=== PATIENT | female | born 1960 | race Caucasian/White ===

== ENCOUNTER 2025-07-28 11:38 | Outpatient (REF) | payer OTHER, SELFPAY ==
--- NOTE | 2025-07-28 11:29 | PAPFT_PTH ---
PATIENT: Saadia Sapp LOC: [facility] U#:[id number] AGE/SX: 64/F ROOM: RE07/28/[address]: Aziza Collier MD : [id number] BED: DIS: 07/28/2025 SPEC #: [id number] RECD: 07/28/25 13:04 STATUS: YVAN REGrazyna #: [id number] ADELE: 07/28/25 11:[address]: Aziza Collier DEPT: [facility] Cytology RECD BY: Saadia Narayan ENTERED: 07/28/25 13:05 SP TYPE: PAPFT OTHR DR: Mary Diego APRN Tissues: 1 - CX/ENDOCX FOR PAP SMEARS Procedures: PAP THIN PREP/UVM Screening HPV DNA PROBE Comments: [id number] (HPV 16 & 18/45)
== END 2025-07-28 11:39 | disposition home or self-care (01) ==
LOC: LBN 11:38
PROVIDERS: PCP Nurse Practitioner Family; Visit Provider Obstetrics & Gynecology
DX: Z12.4 Encounter for screening for malignant neoplasm of cervix (principal)
CPT/HCPCS: 88142; 87624

== ENCOUNTER 2025-08-30 11:30 | Emergency (ER) | payer OTHER, SELFPAY ==
[2025-08-30 11:33] VITALS: BP 130/78; PULSE 63; RESP 16; TEMP 36.6; O2SAT 98
--- NOTE | 2025-08-30 11:41 | ED.GENADUL_ITS ---
Discharge Plan Disposition Patient Disposition: Home Condition: Stable Discharge Details Clinical Impression: Fracture of wrist Primary Care Provider: Mary Diego ED Provider: Saadia Hernandez Home Meds and New Rx's Prescriptions: New morphine 15 mg tablet 15 mg PO BID PRNQty: 8 0RF Continued cholecalciferol (vitamin D3) 50 mcg (2,000 unit) capsule 50 mcg PO DAILY PRN estradiol 0.01 % (0.1 mg/gram) cream 1 g vaginal .twice weekly Qty: 42.5 4RF Rx Instructions: Insert 1g PV 2-3x/week. May use daily for the first 2wks. May massage a pea-sized amount around the vaginal opening prn. fluoxetine [Prozac] 20 mg capsule 20 mg PO DAILY Qty: 90 3RF Discharge Instructions Instructions: Forearm and Wrist Fractures ED, How to care for a splint Additional Instructions: Dr. Redd will follow-up with you next week, the office will likely call you on Monday to schedule an appointment Elevate your wrist above your heart when you are seated, you may wear the sling when you are out and about, make sure that you continue to range her shoulder so it does not become stiff Take Motrin 4 to 600 mg every 8 hours with food as needed for pain, I have also written for morphine, this can be addictive so use cautiously You may apply ice as needed for swelling and discomfort Please return earlier should you have worsening pain, strength or sensation changes, or should any new concerns arise Stand Alone Forms: Portal Information Referrals: Owen Redd MD [ [facility] STAFF PHYSICIAN, Orthopaedic Surgical] HPI General Date/Time Provider Initiated Documentation: 08/30/25 11:39 . HPI Narrative: This 64-year-old female is otherwise reportedly healthy presents with report of fall while cross-country skiing. Patient reportedly landed on her left wrist. She denies any additional injuries but is concerned there is a deformity. She stopped at Dr. Sheikh's house and he recommended that she come to the emergency department for assessment. She has had some tingling in her fingers since the event occurred. Related Data Home Medications ?Medication ?Instructions ?Recorded ?Confirmed fluoxetine 20 mg capsule (Prozac) 20 mg PO DAILY #90 c aps 11/21/24 08/30/25 cholecalciferol (vitamin D3) 50 50 mcg PO DAILY PRN 08/30/25 mcg (2,000 unit) capsule estradiol 0.01% (0.1 mg/gram) 1 g vaginal .twice weekl y #42.5 07/28/25 08/30/25 vaginal cream grams morphine 15 mg immediate release 15 mg PO BID PRN #8 t abs 08/30/25 tablet Previous Rx's ?Medication ?Instructions ?Recorded fluoxetine 20 mg capsule (Prozac) 20 mg PO DAILY #90 c aps 11/21/24 estradiol 0.01% (0.1 mg/gram) 1 g vaginal .twice weekl y #42.5 07/28/25 vaginal cream grams morphine 15 mg immediate release 15 mg PO BID PRN #8 t abs 08/30/25 tablet Allergies Allergy/AdvReac Type Severity Reaction Status Date / Time gluten Allergy Unknown Unknown Unverified 08/30/25 11:36 General Stated Complaint: Orthopedic ABDIFATAH: 4 Exam Narrative Exam Narrative: Alert and oriented 64-year-old female in no acute distress deformity noted to left wrist. Neurovascularly intact, no tenderness to left elbow bruising. Course Vital Signs Vital signs: Vital Signs Temperature 36.6 C 08/30/25 11:33 Pulse 63 08/30/25 11:33 Respiratory Rate 16 08/30/25 11:33 Blood Pressure 130/78 08/30/25 11:33 Pulse Oximetry 98 08/30/25 11:33 Temperature 36.6 C 08/30/25 11:33 Temperature Source Oral 08/30/25 11:33 Pulse 63 08/30/25 11:33 Respiratory Rate 16 08/30/25 11:33 Blood Pressure 130/78 08/30/25 11:33 Pulse Oximetry 98 08/30/25 11:33 Oxygen Delivery Method Room Air 08/30/25 11:33 Oxygen Flow Rate 0 08/30/25 11:33 Procedure Fracture Reduction Fracture #1: Date of Procedure: 08/30/25 Time of procedure: 14:57 Provider that performed the procedure: Saadia Rubin Time Out Performed: Yes Patient Consented: Verbally Ultrasound: Not used Side: left Fracture Reduction Location: radius Analgesia: hematoma block Technique: direct manipulation and finger traps Post Reduction X-rays Demonstrate: acceptable reduction Post-Reduction Neuro Exam: intact Post-Reduction Vascular Exam: intact Splint Applied: Yes Patient Tolerated Procedure: well Outcome: other (follow-up with orthopedics this week ) Orthopedic Splinting/Casting Date of Procedure: 08/30/25 Time of procedure: 14:59 Provider that performed the procedure: Saadia Hernandez Standard Time Out Performed: Yes Patient Consented: Verbally Side: left Upper Extremity Injury Location: wrist Upper Extremity Immobilizer: sling/shoulder immobilizer, posterior splint and volar splint Medical Decision Making Results: Patient with distal radius fracture, angulated per radiology interpretation and my review Assessment and plan: Patient tolerated procedure of reduction of dorsal angulation while in the emergency department with hematoma block with 5 cc of lidocaine. Finger traps were used and dorsal reduction was performed. I placed a dorsal volar splint on patient as opposed to a sugar-tong as there is less r otational movement as there is no obvious ulnar fracture. I think patient will be more comfortable. She is right-hand dominant which is reassuring. Case was discussed with Dr. Redd and he is comfortable with the alignment postreduction will follow-up. Patient tolerated the hematoma block, reduction, and splinting well. She is in no acute distress. I did give 5 mg of IM Valium to help with anxiolysis. I will give her a prescription for morphine at home should she need it for pain, several tabs tolerance of addiction reviewed. Dr. Redd will see patient this week for reassessment. She remains neurovascularly intact I reevaluated cap refill and sensation at time of disposition home at 1530 and placed her in a sling with risk of frozen shoulder reviewed. Discharged home in stable condition with stable vitals. Compartment syndrome signs and symptoms and other red flags reviewed. All questions answered to the best of my ability. Quality:SDOH Health Related Social Needs: Health related social needs lonely/isolated PFSH All Active Problems (Updated 08/30/25 @ 13:58 by DI Sofia) Fracture of wrist (Acute) Osteopenia (Acute) dexa scan 2021 GERD (gastroesophageal reflux disease) (Chronic) Gluten intolerance (Acute) IBS (irritable bowel syndrome) (Chronic) Depressive disorder (Chronic) Midway syndrome (Acute) Medical History (Updated 08/30/25 @ 13:58 by DI Sofia) Atrophic vaginitis Family hx of melanoma Osteoporosis DEXA 11/17/21: shows osteopenia not osteoporosis Eye irritation Surgical History Hx of colonoscopy from records, shows 06/16/2010 repeat in 10 years, Dr. Mckinnon. Hx of hernia repair Family History (Updated 11/19/24 @ 11:04 by Mary Diego APRN) Father Substance use disorder Heart disease first [place] at age 60 (3 MIs) Maternal Uncle Substance use disorder Nephew Substance use disorder Sister Substance use disorder Mother Non-Hodgkin lymphoma Depression Paternal Aunt Breast cancer Daughter No problems noted. Son Asthma Brother No problems noted. Sister No problems noted. Social History Smoking/Tobacco Use Status: Never Second Hand Exposure: No Smoking risk assessment performed?: Yes Alcohol Intake: current Alcohol Intake frequency: 0-2 drinks per day Drug use: Never Adopted: No Caregiver/Support person: No Foster care: No Household members: spouse Housing: house Number of Children: 2 number of grandchildren: 0 Communication Needs: None Education Level: master's degree Do you need help understanding health information?: Rarely current occupation: Retired Pets and animals: Yes (2 Dogs) Sexually active: Yes Do you think of yourself as: straight/heterosexual Current gender identity: female What is your relationship status?: How often do you talk on the phone with friends or family?: three or more times per week How often do you get together with friends or relatives?: three or more times per week Do you belong to any clubs or organized social groups?: no Panel score (0-1 are the most socially isolated patients): 2 What type of physical activity do you participate in: walking, bicycling, yoga and additional Details: hiking, pilates Duration: 30-45 minutes/day Frequency: 3-4 times per week Aiyana/Latter Day: Jainism Special aiyana needs: No Seatbelt use: always Helmet use: Yes Drive intox or ride w/intox trolley coach driver: No Female Reproductive History Menstrual Age of Menarche: 13 History History 3 Para 2 Hx # Term Pregnancies Multiple births Hx # Pregnancies Ectopic pregnancies AB induced Hx Number of Living Children AB spontaneous 1 Past Pregnancies Del. Date GA/Weeks # Preg Succ Route Wgt Sex Labor Lgth Anesth esia Location [facility] 05/05/95 Yes vaginal 3940.584 g Male 11/28/97 Yes vaginal 2579.807 g Female PAWSS Have you Been Recently Intoxicated or Drunk Within the Last 30 days?: No Have you Ever Experienced Previous Episodes of Alcohol Withdrawal?: No Have you ever Experienced Withdrawal Seizures?: No Have you ever Experienced Delirium Tremens(DT)s?: No Have you ever undergone Alcohol Rehabilitation Treatment (i.e, inpt ot outpatient treatment programs)?: No Have you ever Experienced Blackouts?: No Have you ever Combined Alcohol with other Downers within the last 90 days?: No Have you ever Combined Alcohol with any other Substance of Abuse during the last 90 days?: No Result: 0
--- NOTE | 2025-08-30 11:45 | DI.RAD_ITS ---
Exam(s) XR WRIST LT COMPLETE EXAM: XR WRIST LT COMPLETE CLINICAL HISTORY: left wrist pain, fall. TECHNIQUE: 2D digital imaging was performed. COMPARISON: No exams were available for comparison FINDINGS: 3 views There is a nondisplaced fracture of the distal radius. Fracture line reaches the articular surface of the radiocarpal joint but there does not appear to be an obvious step at this level. There is no significant ulnar variance. The ulnar styloid is intact. Scaphoid and lunate appear intact as does the scapholunate distance. No evidence of carpal dislocation. Incidentally noted are degenerative changes at the 1st carpometacarpal joint. IMPRESSION: Nondisplaced distal radius fracture. DATA REPOSITORY: RADIATION DOSE DELIVERED:
--- NOTE | 2025-08-30 12:17 | DI.VRAD_ITS ---
PROCEDURE INFORMATION: Exam: XR Left Wrist Exam date and time: 08/30/2025 11:53 AM Age: 64 years old Clinical indication: Injury or trauma; Fall TECHNIQUE: Imaging protocol: Radiologic exam of the left wrist. Views: 3 or more views. COMPARISON: No relevant prior studies available. FINDINGS: Bones/joints: Minimally displaced fracture of the distal radius. No dislocation. Soft tissues: Wrist swelling. IMPRESSION: Acute minimally displaced fracture of the distal radius. Dictated and Authenticated by: Freddy Salazar MD. Orderin Mary Zee MD
[2025-08-30] MEDS: Lidocaine 1% Pres-Free 5 ML VIAL (12:25)
[2025-08-30] MEDS: diazePAM 10 MG/2 ML SYR 5 MG IM (12:39)
--- NOTE | 2025-08-30 13:15 | DI.RAD_ITS ---
Exam(s) XR WRIST LT COMPLETE EXAM: XR WRIST LT COMPLETE CLINICAL HISTORY: post reduction, radius. TECHNIQUE: 2D digital imaging was performed. COMPARISON: Earlier same date. FINDINGS: 3 views perform through cast material, post closed reduction There is redemonstration of the fracture of the distal radius. There is satisfactory alignment of the distal radial fracture fragments. IMPRESSION: Satisfactory postreduction appearance DATA REPOSITORY: RADIATION DOSE DELIVERED:
--- NOTE | 2025-08-30 13:47 | DI.VRAD_ITS ---
PROCEDURE INFORMATION: Exam: XR Left Wrist Exam date and time: 08/30/2025 1:28 PM Age: 64 years old Clinical indication: Injury or trauma; Fall; Other: Post reduction TECHNIQUE: Imaging protocol: Radiologic exam of the left wrist. Views: 3 or more views. COMPARISON: CR XR WRIST LT COMPLETE 08/30/2025 11:53 AM FINDINGS: Bones/joints: Redemonstrated fracture of the distal radius. Slight fracture angulation on prior exam has decreased. No dislocation. Soft tissues: Wrist swelling. IMPRESSION: Status post reduction of distal radial fracture with decreased angulation. Dictated and Authenticated by: Freddy Salazar MD. Orderin Mary Zee MD
[2025-08-30 14:26] VITALS: BP 109/81; PULSE 59; RESP 16; O2SAT 97
== END 2025-08-30 14:01 | disposition home or self-care (01) ==
PROVIDERS: Emergency Provider Physician Assistant; PCP Nurse Practitioner Family
DX: S62.102A Fracture of unspecified carpal bone, left wrist, initial encounter for closed fracture (principal); V00.321A Fall from snow-skis, initial encounter; Z60.8 Other problems related to social environment
CPT/HCPCS: 99283 ×2; 25605; 73110; J2003; J3360

== ENCOUNTER 2025-09-04 13:39 | Outpatient (CLI) | payer OTHER, SELFPAY ==
--- NOTE | 2025-09-04 13:00 | DI.RAD_ITS ---
Exam(s) XR WRIST LT LIMITED EXAM: XR WRIST LT LIMITED INDICATION: F/U L WRIST FX. COMPARISON: CR,XR XR WRIST LT COMPLETE from 08/30/2025 CR,XR XR WRIST LT COMPLETE from 08/30/2025 TECHNIQUE: 2D digital imaging was performed. Two views. FINDINGS: A cast is in place. There has been no change in the alignment of the distal radial fracture. No new abnormalities are seen. DATA REPOSITORY: RADIATION DOSE DELIVERED:
== END 2025-09-04 13:40 | disposition home or self-care (01) ==
LOC: DIORS 13:39
PROVIDERS: PCP Nurse Practitioner Family; Visit Provider Student in an Organized Health Care Education/Training Program
DX: S62.109A Fracture of unspecified carpal bone, unspecified wrist, initial encounter for closed fracture (principal)
CPT/HCPCS: 73100

== ENCOUNTER 2025-09-08 08:08 | Day surgery (SDC) | payer OTHER, SELFPAY ==
[2025-09-08] VITALS (20 sets, daily range): BP systolic 95–120; BP diastolic 48–73; PULSE 54–67; RESP 0–23; TEMP 36.2–36.7; O2SAT 95–100; BMI 19.3
--- NOTE | 2025-09-08 07:13 | PDOC.DSDIS_ITS ---
Date of service: 09/08/25 Discharge Plan Disposition Patient Disposition: Home Condition: Stable Discharge Details Attending Provider: Jose Vance Primary Care Provider: Mary Diego Home Meds and New Rx's Prescriptions: Continued cholecalciferol (vitamin D3) 50 mcg (2,000 unit) capsule 50 mcg PO DAILY PRN estradiol 0.01 % (0.1 mg/gram) cream 1 g vaginal .twice weekly Qty: 42.5 4RF Rx Instructions: Insert 1g PV 2-3x/week. May use daily for the first 2wks. May massage a pea-sized amount around the vaginal opening prn. fluoxetine [Prozac] 20 mg capsule 20 mg PO DAILY Qty: 90 3RF morphine 15 mg tablet 15 mg PO BID PRNQty: 8 0RF Patient Comments: patient hasn't taken acetaminophen 325 mg capsule 325 mg PO Q6H PRN Discharge Instructions Additional Instructions: Surgery: Left distal radius ORIF 09/08/25 Activity: Non-weightbearing left wrist. Recommend elevation to minimize swelling discomfort. Encourage range of motion wiggle all fingers and thumb to prevent stiffness. You may use thumb and fingers gently for light activities. Prescriptions: None Use ikdz-mli-qxpyria ibuprofen 400-600mg every 4-6 hours as needed for moderate to severe pain You may use [id number]-gov-lqmgwiz Tylenol (acetaminophen) 650-1,000mg as needed for mild to moderate pain. These pain medications may be taken all at once or in different combinations as needed. Also, recommend Colace (docusate) as a stool softener as surgery and pain medicine cause constipation. Dressings: Leave splint and dressing in place until follow-up. Keep clean and dry at all times. Follow-up: 10-[address] Vance Let us know right away if you develop any redness, drainage, fevers, chest pain, or trouble breathing. Do not drink alcohol or drive for at least 24 hours after anesthesia. Please call the office during business hours with any questions or concerns. Stand Alone Forms: Anesthesia Discharge Inst., Anes.Nerve Block Instructions, Rylie Joe (DSU), Portal Information Referrals: Jose Vance MD [ [facility] STAFF PHYSICIAN, Orthopaedic Surgical] - 09/16/25 9:15 am Discharge Orders Discharge Orders: Discharge Order (Routine); Ordered 09/08/25 Ordered By: Toya Olvera DS: Diagnosis Discharge Diagnosis (1) Fracture of left distal radius: Status: Acute
--- NOTE | 2025-09-08 07:33 | ROE_ITS ---
Operative Note Operative Note PRE-OP DIAGNOSIS: Left displaced angulated intra-articular distal radius fracture POST-OP DIAGNOSIS: same PROCEDURE: Left distal radius open reduction internal fixation, intra-articular 2 fragments, CPT #31380 SURGEON: Jose Vance 3D TECHNOLOGIST: Toya Olvera ANESTHESIA TYPE: Local By Surgeon, General LMA/ETT and Primary Nerve Block Refer to Anesthesia Record ESTIMATED BLOOD LOSS: 10 COMPLICATIONS: None Patient was transported to: PACU Patient's condition: stable Implants: Synthes 2.4mm variable angle LCP distal radius system with 6x distal locking screws and 3x proximal cortex screws Indications: Please see complete medical record for details. Findings: Extra-articular displacement of intra-articular fracture readily reducible with somewhat softened bone quality Procedure Description: In the operating room, general anesthesia was induced. The patient was positioned supine on the operating room table. All bony prominences were well- padded. Preoperative antibiotics were administered. The left wrist was prepped and draped in the usual sterile fashion. The correct patient, procedure, and side of the procedure were all verified prior to incision. The modified volar [place] volar approach to the distal radius was marked, preinjected with 0.25% bupivacaine containing epinephrine, and then opened taking care to protect and mobilized the radial artery radially and using the FCR subs sheath with retraction of FCR ulnarly and then releasing and sweeping the pronator quadratus from the radial to ulnar. The distal radius fracture was identified. The intra-articular split remained nondisplaced. The extra-articular displacement was corrected with direct manual manipulation. Exposure was carried proximally distally as needed for appropriate plating. Care was taken to preserve the volar wrist capsule and soft tissue attachments. An appropriately sized volar precontoured plate was placed, secured proximally in the oblong hole, and then adjusted with fluoroscopic assistance into the best position. It was then secured proximally with bicortical 2.4 mm cortex screws and then distally with 2.4 mm locking screws. Fluoroscopy was used to confirm appropriate hardware placement, especially screws with consideration of the joint surface, and fracture alignment. The wound was copiously irrigated normal saline. Pronator quadratus reflected back over the plate radially. Hemostasis appropriate. Subcutaneous tissue closed with 3-0 Monocryl buried interrupted followed by 3-0 Monocryl running. Steri- Strips were applied over the incision followed by Xeroform and a volar plaster splint was placed on the wrist. The patient awoke from anesthesia without complication and was transferred to the recovery room in a stable condition. Date of Procedure: 09/08/25
[2025-09-08] MEDS: Lactated Ringers 1,000 ML 80 ML IV (08:50)
[2025-09-08] MEDS: Celecoxib 200 MG CAP 400 MG PO (08:51)
[2025-09-08] MEDS: Acetaminophen 500 MG TAB 1000 MG PO (08:51)
--- NOTE | 2025-09-08 10:56 | ANES.PREOP_ITS ---
General Info Date of Service Date Performed: 09/08/25 Height: 5 ft 8 in Weight: 57.6 kg Body Mass Index (BMI): 19.3 Surgical Procedure: Operation Date: 09/08/25 11:40 Proposed Procedure Side Surgeon p Wrist ORIF Distal Radius Left Jose Vance MD Meds Allergies and Home Medications Allergies Allergy/AdvReac Type Severity Reaction Status Date / Time gluten Allergy Unknown Unknown Verified 09/08/25 08:45 Home Medication ?Medication ?Instructions ?Recorded fluoxetine 20 mg capsule (Prozac) 20 mg PO DAILY #90 c aps 11/21/24 cholecalciferol (vitamin D3) 50 50 mcg PO DAILY PRN mcg (2,000 unit) capsule estradiol 0.01% (0.1 mg/gram) 1 g vaginal .twice weekl y #42.5 07/28/25 vaginal cream grams morphine 15 mg immediate release 15 mg PO BID PRN #8 t abs 08/30/25 tablet acetaminophen 325 mg capsule 325 mg PO Q6H PRN 5 Current Visit Medications: Current Medications Generic Name Dose Route Start Last Admin Trade Name Freq PRN Reason Stop Dose Admin Acetaminophen 1,000 mg 09/08/25 06:00 09/08/25 08:51 Acetaminophen 500 Mg Tab PO 09/08/25 23:59 1,000 mg PREOP BLU Administration Celecoxib 400 mg 09/08/25 06:00 09/08/25 08:51 Celecoxib 200 Mg Cap PO 09/08/25 23:59 400 mg PREOP BLU Administration Ringer's Solution 1,000 mls @ 80 mls/hr 09/08/25 06:00 09/08/25 08:50 IV 09/08/25 23:59 80 mls/hr INFUSION BLU Administration Cefazolin Sodium/Dextrose 2 gm in 50 mls @ 100 mls/hr 09/08/25 06:00 Ancef Duplex IVPB 09/08/25 23:59 PREOP BLU Oxycodone HCl 0 mg 09/08/25 07:12 Oxycodone 5 Mg Tab PO 10/08/25 07:11 Q3H PRN PRN Pain Sodium Chloride 0 ml 09/08/25 06:00 Normal Saline Flush 10 Ml Syr IV 09/08/25 23:59 PRN PRN Sodium Chloride 0 ml 09/08/25 06:00 Normal Saline 10 Ml Vial IJ 09/08/25 23:59 DIRECTED PRN Sterile Water 0 ml 09/08/25 06:00 Water,Injection,Sterile 10 Ml Vial IJ 09/08/25 23:59 DIRECTED PRN PFSH Active Problems Active Problems: Problem Status Onset Code Fracture of left distal radius Acute 08/30/25 S52.502A Osteopenia Acute M85.80 GERD (gastroesophageal reflux disease) Chronic K21.9 Gluten intolerance Acute K90.41 IBS (irritable bowel syndrome) Chronic K58.9 Depressive disorder Chronic 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 Mckinnon. Hx of hernia repair Tobacco Smoking/Tobacco Use Status: Never Passive smoking exposure: No Second hand exposure: No Alcohol Alcohol Intake: current Alcohol intake frequency: 0-2 drinks per day Substance Use Substance use: Never Substance use type: does not use Prental History History 3 Para 2 Hx # Term Pregnancies Multiple births Hx # Pregnancies Ectopic pregnancies AB induced Hx Number of Living Children AB spontaneous 1 Past Pregnancies Del. Date GA/Weeks # Preg Succ Route Wgt Sex Labor Lgth [facility]h [facility] Yes vaginal 3940.584 g Male 11/28/97 Yes vaginal 2579.807 g Female Vital Signs and Lab Results Vital Signs Most Recent Vital Signs in EMR: Most Recent Vital Signs Pulse Resp BP Pulse Ox 59 L 16 110/67 98 09/08/25 08:41 09/08/25 08:41 09/08/25 08:41 09/08/25 08:41 Anesthesia Assessment and Plan Anesthesia History Personal History: No History of Anesthesia Complications Family History: No Family History of Anesthesia Complications Exercise Tolerance Exercise Tolerance: Metabolic Equivalents>4 Pertinent Negatives Pertinent Negatives: No Symptoms of GERD Cardiac & Pulmonary Exam Cardiac Exam: Normal S1/S2 Heart Sounds Pulmonary Exam: Clear Bilateral Breath Sounds Implantable Cardiac Device Does patient have a Pacemaker or an ICD?: No Airway Exam Known Difficult Airway: No Mallampati Class: 2 Mouth Opening: Normal (> 3cm) Thyromental Distance: Greater than 3 cm Neck Range of Motion: Full ROM Neck Circumference: Normal Teeth Condition: Normal Dentition ASA Classification ASA Score: ASA 2 Emergency Case?: No NPO Status NPO Status: NPO Clears >2 hours, Solids >8 hours Anesthesia Plan Resuscitation Status: Full Code Anesthesia Technique: General Anesthesia Airway Planned: LMA Pain Management: Surgeon and patient request nerve block Monitors Used: Standard Monitors and SedLine
[2025-09-08] MEDS: ceFAZolin 2 GM/50 ML BAG IVPB (11:30)
[2025-09-08] MEDS: TRANEXAMIC ACID/SOD. CHL. 1,000 MG/100 ML BAG 100 MG (11:37)
[2025-09-08] MEDS: Bupivacaine 0.25% Pres-Free W/EPI 30 ML VIAL (11:53)
--- NOTE | 2025-09-08 12:53 | DI.RAD_ITS ---
Exam(s) XR WRIST LT LIMITED EXAM: XR WRIST LT LIMITED CLINICAL HISTORY: Fracture of left distal radius. TECHNIQUE: 2D and realtime digital imaging was performed. COMPARISON: CR XR WRIST LT LIMITED from 09/04/2025 FINDINGS: Hard copy images show placement of a fixation plate along the volar aspect of the distal radius. The fracture alignment appears anatomic. Please see procedure note for details. Fluoro time: 28.8seconds RADIATION DOSE DELIVERED: mayco Olson=0.53 mGy
[2025-09-08] MEDS: HYDROmorphone 2 MG/ML SYR IVP ×2 (13:22→13:41)
--- NOTE | 2025-09-08 13:52 | W.ANESPOSTOP ---
Postoperative Evaluation Date, Time and Location Date Performed: 09/08/25 Time Performed: 13:52 Patient Location: PACU Vital Signs Most Recent Imported Vital Signs: Most Recent Vital Signs Temp Pulse Resp BP Pulse Ox 36.7 C 56 L 17 113/59 L 100 09/08/25 13:29 09/08/25 13:41 09/08/25 13:41 09/08/25 13:41 09/08/25 13:41 Pain Score Most Recent Pain Score: Most Recent Pain Score Pain Level 7 09/08/25 13:29 Assessment Mental Status: Awake (Alert & Oriented to Patient Baseline) Airway and Respiratory Function: Patent airway with normal (patient baseline) respiratory exam Cardiovascular Function: Hemodynamically Stable Hydration Status: Adequately Hydrated Nausea & Vomiting: No Nausea or Vomiting Pain: Pain is tolerable per patient Peripheral Nerve Block: Patient did not receive a nerve block
[2025-09-08] MEDS: traMADol 50 MG TAB PO (14:33)
== END 2025-09-08 15:15 | disposition home or self-care (01) ==
LOC: SUR 08:08
PROVIDERS: PCP Nurse Practitioner Family; Visit Provider Student in an Organized Health Care Education/Training Program
PROC: (CPT 25608; principal; 2025-09-08 11:30)
DX: S52.572A Other intraarticular fracture of lower end of left radius, initial encounter for closed fracture (principal); X58.XXXA Exposure to other specified factors, initial encounter
CPT/HCPCS: 25608; 76000; 73100; J0690; J1100; J1171; J1885; J2003; J2250; J2405; J2704; J3010

== ENCOUNTER 2025-09-16 11:31 | Outpatient (CLI) | payer OTHER, SELFPAY ==
--- NOTE | 2025-09-16 09:00 | DI.RAD_ITS ---
Exam(s) XR WRIST LT LIMITED EXAM: XR WRIST LT LIMITED CLINICAL HISTORY: F/U FRACTURE. TECHNIQUE: 2D digital imaging was performed. COMPARISON: CR XR WRIST LT LIMITED from 09/04/2025 XA XR WRIST LT LIMITED from 09/08/2025 FINDINGS: Two views: There is a volar fixation plate across the distal radial fracture site. This was placed on 09/08/2020. Hardware appears satisfactory. No further displacement. No evidence of osteomyelitis. No significant ulnar variance. IMPRESSION: Satisfactory appearance DATA REPOSITORY: RADIATION DOSE DELIVERED:
== END 2025-09-16 11:32 | disposition home or self-care (01) ==
LOC: DIORS 11:32
PROVIDERS: PCP Nurse Practitioner Family; Visit Provider Physician Assistant
DX: S52.502A Unspecified fracture of the lower end of left radius, initial encounter for closed fracture (principal)
CPT/HCPCS: 73100